=== PATIENT | male | born 1985 | race African-American/Black ===

== ENCOUNTER 2021-05-17 09:27 | Emergency (ER) | payer MEDICAID ==
[~2021-05-17] VITALS: Ht 162.6 cm; Wt 73.0 kg
[2021-05-17 09:33] VITALS: BP 152/94
[2021-05-17] MEDS ORDERED: CEFTRIAXONE SODIUM 1 G/VIAL IM ONE (10:15)
[2021-05-17 10:53] LABS: CLARITY URINE CLOUDY (CLEAR); COLOR URINE YELLOW (YELLOW); KETONES URINE NEGATIVE (NEGATIVE); LEUKOCYTE ESTERASE URINE 3+ (NEGATIVE); NITRITE URINE NEGATIVE (NEGATIVE); OCCULT BLOOD URINE TRACE (NEGATIVE); PH URINE 6.5 (4.5-8.0); PROTEIN URINE 1+ (NEGATIVE); SPECIFIC GRAVITY URINE 1.025 (1.005-1.030)
[2021-05-17] MEDS ORDERED: LIDOCAINE HCL 1% 20ML VIAL (Pyxis) INJ INFIL ONE (11:15)
[2021-05-17] MEDS ORDERED: DOXY100C5 MT (11:24)
[2021-05-17] MEDS ORDERED: LIDOCAINE HCL 1% 10 MG/ML 10ML VIAL IJ NR (11:30)
[2021-05-19 04:07] LABS: NEISSERIA GONORRHOEAE NAA Positive (Negative)
== END 2021-05-17 11:35 | disposition home or self-care (01) ==
LOC: ER 09:27
DX: N30.00 Acute cystitis without hematuria (principal); A64 Unspecified sexually transmitted disease; I10 Essential (primary) hypertension; Z98.890 Other specified postprocedural states
CPT/HCPCS: 81003; 87077; 87086; 87491; 87591; 96372; 99283; J0696; J3490

== ENCOUNTER 2021-08-07 13:24 | Emergency (ER) | payer MEDICAID ==
[~2021-08-07] VITALS: Ht 157.5 cm; Wt 64.0 kg
[~2021-08-07 13:24] MED LIST: DOXY100C5 MT
[2021-08-07 13:33] VITALS: BP 149/98
[2021-08-07] MEDS ORDERED: CEFTRIAXONE SODIUM 500 MG/VIAL IM ONE (13:45)
[2021-08-07] MEDS ORDERED: LIDOCAINE HCL 1% 20ML VIAL (Pyxis) INJ INFIL ONE (13:45)
[2021-08-07] MEDS ORDERED: DOXY100T28 PO (13:49)
[2021-08-07] MEDS ORDERED: DOXYCYCLINE HYCLATE 100MG CAPSULE PO ONE (14:00)
[2021-08-07 14:41] LABS: CLARITY URINE CLOUDY (CLEAR); COLOR URINE YELLOW (YELLOW); KETONES URINE TRACE (NEGATIVE); LEUKOCYTE ESTERASE URINE 2+ (NEGATIVE); NITRITE URINE NEGATIVE (NEGATIVE); OCCULT BLOOD URINE TRACE (NEGATIVE); PROTEIN URINE NEGATIVE (NEGATIVE); SPECIFIC GRAVITY URINE 1.026 (1.005-1.030)
[2021-08-07] MEDS ORDERED: LIDOCAINE HCL 1% 10 MG/ML 10ML VIAL IJ NR (15:00)
[2021-08-11 04:09] LABS: NEISSERIA GONORRHOEAE NAA Positive (Negative)
== END 2021-08-07 15:03 | disposition home or self-care (01) ==
LOC: ER 13:24
DX: N34.2 Other urethritis (principal); I10 Essential (primary) hypertension
CPT/HCPCS: 81003; 87086; 87491; 87591; 96372; 99283; J0696; J3490